=== PATIENT | female | born 1940 | race Caucasian/White ===

== ENCOUNTER 2019-04-30 15:37 | Emergency (ER) | payer OTHER ==
[~2019-04-30] VITALS: Ht 149.9 cm; Wt 51.0 kg
--- NOTE | 2019-04-30 16:33 | NUR ---
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
--- NOTE | 2019-04-30 16:35 | NUR ---
PT ARRIVED TO ROOM 35 VIA WHEELCHAIR WITH TECH. PT STATES "I FELL ON A PILLOW AND I WAS WORRIED I BROKE MY NECK. I CAN MOVE EVERYTHING AND I TOOK MY XANAX AND PERCOCET. PT AAO X 4, DRESSED IN GOWN AND ATTACHED TO MONITORS. PT C/O STIFFNESS AND PAIN IN BILATERAL SHOULDERS. RESTING IN GURNEY, CALL LIGHT WITHIN REACH, FALL PRECAUTIONS IN PLACE.
[2019-04-30 16:49] VITALS: BP 101/63
[2019-04-30] MEDS ORDERED: PERCOCET (16:51)
[2019-04-30] MEDS ORDERED: XANAX (16:51)
--- NOTE | 2019-04-30 16:54 | NUR ---
PT TO CT.
--- NOTE | 2019-04-30 17:14 | NUR ---
PT BACK FROM CT.
--- NOTE | 2019-04-30 17:48 | NUR ---
Patient/Caregiver given discharge instructions and they have confirmed that they understand the instructions. Patient ESCORTED TO DISCHARGE DESK VIA WHEELCHAIR.
== END 2019-04-30 17:50 | disposition home or self-care (01) ==
LOC: ED 17:44
DX: S16.1XXA Strain of muscle, fascia and tendon at neck level, initial encounter (principal); R51 Headache; F17.200 Nicotine dependence, unspecified, uncomplicated; W01.0XXA Fall on same level from slipping, tripping and stumbling without subsequent striking against object, initial encounter; Y93.89 Activity, other specified; Y92.009 Unspecified place in unspecified non-institutional (private) residence as the place of occurrence of the external cause; Y99.8 Other external cause status
CPT/HCPCS: 70450; 72125; 99284